=== PATIENT | female | born 1990 | race Caucasian/White ===

== ENCOUNTER 2016-07-31 18:12 | Emergency (ER) | payer SELFPAY ==
[~2016-07-31] VITALS: Ht 160 cm; Wt 45.0 kg
[~2016-07-31 18:12] MED LIST: ACYC1CAP16 PO; IBUP800 PO; PREN0.01; SENN1TAB11 PO
[2016-07-31 18:13] VITALS: BP 104/74; PULSE 79; RESP 20; TEMP 98.5; O2SAT 100
[2016-07-31] MEDS ORDERED: METH40TA PO (19:12)
--- NOTE | 2016-07-31 19:15 | PD ---
HPI Chief Complaint: Skin Problem Time Seen by Provider: 19:12 Travel History International Travel<30 days: No Contact w/Intl Traveler<30days: No Traveled to known affect area: No History of Present Illness HPI 25-year-old white female presents to emergency department with complaints of infection to her right anterior thigh. This is been present now for the past 3 days. She denies any drug abuse. She does state that this started off as a small pustule. She has had associated subjective fever and chills, nausea, dysuria, frequency and urgency. No abdominal pain. PFSH Past Medical History Medical History: Denies Significant Hx Immunizations Current: Yes ?: Unknown LMP: LAST MONTH : 4 Para: 4 Past Surgical History Surgical History: No Previous Surgery Social History Alcohol Use: No Tobacco Use: Yes Substance Use: No Allergies-Medications (Allergen,Severity, Reaction): Coded Allergies: No Known Allergies (Verified , 07/31/16) Reported Meds & Prescriptions Reported Meds & Active Scripts Active Reported Katia-Colace (Senna/Docusate Sodium) 1 Tab Tab 1-2 Tab PO BID PRN Motrin 800 Mg Tab (Ibuprofen) 800 Mg Tab 800 Mg PO Q6 PRN Zovirax 200 Mg Cap (Acyclovir) 200 Mg Cap 200 Mg PO TID Vit ( Plus) (Prenat Multivit/Pierce/Iron/Folic Ac) Tab Review of Systems Except as stated in HPI: all other systems reviewed are Neg Physical Exam Narrative GENERAL: This is a well-nourished, well-developed patient, in no apparent distress. SKIN: No rashes, ecchymoses or lesions. Warm and dry. Patient has multiple [place] on the extremities and face one would associate with methamphetamine use with formication. There is no area of erythema and tenderness to the anterior right thigh. There is no fluctuance or pointing. HEAD: Atraumatic. Normocephalic. EYES: PERRL, EOMI, no discharge or injection. No scleral icterus. EARS: Clear NOSE: Nasal turbinates appear normal. THROAT: Mucosa pink and moist. Airway patent. NECK: Trachea midline. supple, moves head freely. LUNGS: Clear to auscultation. CV: Regular in rhythm. ABDOMEN: Soft nontender. EXT: No clubbing cyanosis or edema. Data Data Last Documented VS Vital Signs Date Time Temp Pulse Resp B/P Pulse Ox O2 Delivery O2 Flow Rate FiO2 07/31/16 18:13 98.5 79 20 104/74 100 Room Air MDM Medical Decision Making Medical Screen Exam Complete: Yes Emergency Medical Condition: Yes Medical Record Reviewed: Yes Differential Diagnosis MDM: High Differential diagnoses: Abscess, folliculitis, cellulitis, lymphangitis, abrasion, contact dermatitis Narrative Course The patient tells me she does not take any medications she does not have a history of drug abuse. The nurse does inform me that she is taking methadone and does have a history of drug abuse. This is right anterior thigh cellulitis Diagnosis Primary Impression: Cellulitis of right thigh Patient Instructions: General Instructions Additional Instructions: Rest. Elevation. keep clean and dry. Warm compresses Daily wound care with soap, water and Neosporin. Three Advil every 6 hours. Bactrim DS and Keflex. Follow-up with a primary care doctor in one week. Return to the ER for any problems. Med/Other Pt SpecificInfo: Prescription(s) given, Wound Care Disposition: 01 DISCHARGE HOME Condition: Stable Torey Lemon July 31, 2016 19:15
[2016-07-31] MEDS ORDERED: CEPH500C PO (19:16)
[2016-07-31] MEDS ORDERED: BACT800T5 PO (19:16)
== END 2016-07-31 19:35 | disposition home or self-care (01) ==
LOC: NEPK 18:12
DX: L03.115 Cellulitis of right lower limb (principal); Z72.0 Tobacco use
CPT/HCPCS: 99283

== ENCOUNTER 2017-07-13 07:24 | Inpatient (IN) | payer SELFPAY ==
[2017-07-13 08:19] LABS: AUTOMATED NEUTROPHIL # 6.6 TH/MM3 (1.8-7.7); BASOPHIL # 0.1 TH/MM3 (0-0.2); BASOPHIL % 0.9 % (0.0-2.0); EOSINOPHIL # 0.2 TH/MM3 (0-0.4); EOSINOPHIL % 1.8 % (0.0-4.0); HEMATOCRIT 40.3 % (35.0-46.0); HEMO FLAGS DIFF FINAL; HEMOGLOBIN 13.7 GM/DL (11.6-15.3); LYMPH % 30.3 % (9.0-44.0); LYMPHOCYTE # 3.4 TH/MM3 (1.0-4.8); MEAN CELL VOLUME 79.6 FL (80.0-100.0); MEAN CORPUSCULAR HEMOGLOBIN 27.1 PG (27.0-34.0); MEAN CORPUSCULAR HGB CONC 34.1 % (32.0-36.0); MEAN PLATELET VOLUME 8.7 FL (7.0-11.0); MONOCYTE # 0.9 TH/MM3 (0-0.9); PLATELET COUNT 271 TH/MM3 (150-450); RED BLOOD COUNT 5.07 MIL/MM3 (4.00-5.30); RED CELL DISTRIBUTION WIDTH 14.3 % (11.6-17.2); WHITE BLOOD COUNT 11.2 TH/MM3 (4.0-11.0)
[2017-07-13] MEDS: VANCOMYCIN INJ 1,000 MG in SODIUM CHLOR 0.9% 250 ML INJ 250 ML IV ×2 (08:24→20:26)
[2017-07-13 08:42] LABS: ALT (GPT) 73 U/L (10-53)
[2017-07-13 08:44] LABS: ALKALINE PHOSPHATASE 136 U/L (45-117); TOTAL BILIRUBIN ADULT 0.3 MG/DL (0.2-1.0); TOTAL PROTEIN 7.5 GM/DL (6.4-8.2)
[2017-07-13 08:52] LABS: ALBUMIN 3.1 GM/DL (3.4-5.0); ANION GAP 7 MEQ/L (5-15); AST (GOT) 35 U/L (15-37); BICARBONATE 23.5 MEQ/L (21.0-32.0); BLOOD UREA NITROGEN 16 MG/DL (7-18); CALCIUM 8.8 MG/DL (8.5-10.1); CHLORIDE 108 MEQ/L (98-107); CREATININE 0.79 MG/DL (0.50-1.00); GLOMERULAR FILTRATION RATE 87 ML/MIN (>89); GLUCOSE,RANDOM 80 MG/DL (74-106); SODIUM (NA) 138 MEQ/L (136-145)
[2017-07-13] MEDS ORDERED: SODIUM CHLORIDE 0.9% FLUSH 10 ML FLUSH IV FLUSH (11:00)
[2017-07-13] MEDS ORDERED: Vancomycin Consult Pharmacy 1 EA OTHER (11:00)
[2017-07-13] MEDS: HEPARIN SODIUM - SQ 10,000 UNITS/ML VIAL SQ (13:58)
[2017-07-13 14:47] LABS: BACTERIA, URINE RARE /hpf; BILIRUBIN, URINE NEG (NEG); BLOOD, URINE TRACE (NEG); CALCIUM OXALATE CRYSTALS,URINE FEW /hpf; COMMENT (UR) CULTURE INDICATED; CULTURE IF INDICATED CULTURE INDICATED; GLUCOSE,URINE NEG (NEG); KETONE, URINE NEG (NEG); MUCUS URINE FEW /lpf (OCC); NITRITE,URINE POS (NEG); RENAL EPITHELIAL CELLS <1 /hpf; SQUAMOUS EPITHELIAL CELL URINE 1 /hpf (0-5); URINE COLOR YELLOW (YELLW/STRAW); URINE LEUKOCYTE ESTERASE LARGE (NEG); WHITE BLOOD CELL CLUMPS FEW
[2017-07-13] MEDS: ACETAMINOPHEN 500 MG CPLT PO (15:05)
[2017-07-13 15:22] LABS: AMPHETAMINE, URINE NEG (NEG); BARBITURATES, URINE NEG (NEG); BENZODIAZEPINE,URINE NEG (NEG); CANNABINOIDS, URINE POS (NEG); COCAINE, URINE POS (NEG)
[2017-07-13] MEDS: KETOROLAC TROMETHAMINE 30 MG/ML (IVP) VIAL IVP (16:21)
[2017-07-13] MEDS: NICOTINE 14 MG/24 HR PATCH T-DERMAL (18:34)
[2017-07-13] MEDS: SODIUM CHLORIDE 0.9% FLUSH 10 ML FLUSH IV FLUSH (20:27)
[2017-07-14] MEDS ORDERED: METHADONE HCL 10 MG TAB PO (09:00)
[2017-07-14] MEDS ORDERED: REMOVE OLD PATCH T-DERMAL (18:00)
[2017-07-15] MEDS ORDERED: PHARMACY ORDERED LAB (07:45)
== END 2017-07-13 20:48 | disposition left against medical advice (07) | DRG 603 ==
LOC: NEPC 07:24 → NEDA 10:37 → N05B 15:06
DX: L03.113 Cellulitis of right upper limb (principal); N39.0 Urinary tract infection, site not specified; L03.115 Cellulitis of right lower limb; L03.116 Cellulitis of left lower limb; L02.818 Cutaneous abscess of other sites; L03.012 Cellulitis of left finger; B19.20 Unspecified viral hepatitis C without hepatic coma; F17.210 Nicotine dependence, cigarettes, uncomplicated; F11.10 Opioid abuse, uncomplicated; F19.10 Other psychoactive substance abuse, uncomplicated
CPT/HCPCS: 76882; 80053; 80307; 81001; 84703; 85025; 86703; 87040; 87077; 87086; 87186; 93005

== ENCOUNTER 2017-07-25 12:12 | Emergency (ER) | payer SELFPAY ==
[~2017-07-25] VITALS: Ht 162.6 cm; Wt 46.0 kg
[~2017-07-25 12:12] MED LIST changes: -ACYC1CAP16 PO; -IBUP800 PO; +METH40TA PO; -PREN0.01; -SENN1TAB11 PO
[2017-07-25 12:35] VITALS: BP 114/67; PULSE 88; RESP 17; TEMP 99; O2SAT 100
[2017-07-25 13:35] LABS: ALBUMIN 3.6 GM/DL (3.4-5.0); ALT (GPT) 23 U/L (10-53); AST (GOT) 14 U/L (15-37); BICARBONATE 25.9 MEQ/L (21.0-32.0); BLOOD UREA NITROGEN 13 MG/DL (7-18); CALCIUM 9.5 MG/DL (8.5-10.1); CHLORIDE 104 MEQ/L (98-107); GLOMERULAR FILTRATION RATE 75 ML/MIN (>89); GLUCOSE,RANDOM 97 MG/DL (74-106); SODIUM (NA) 139 MEQ/L (136-145)
[2017-07-25 13:37] LABS: ALKALINE PHOSPHATASE 115 U/L (45-117); TOTAL BILIRUBIN ADULT 0.4 MG/DL (0.2-1.0); TOTAL PROTEIN 8.6 GM/DL (6.4-8.2)
== END 2017-07-25 14:20 | disposition left against medical advice (07) ==
LOC: NED 12:12
DX: Z53.21 Procedure and treatment not carried out due to patient leaving prior to being seen by health care provider (principal); Z03.89 Encounter for observation for other suspected diseases and conditions ruled out
CPT/HCPCS: 80053; 83605; 99281